=== PATIENT | male | born 1995 | race Caucasian/White ===

== ENCOUNTER 2022-07-28 13:34 | Emergency (ER) | payer BC, SELFPAY ==
[2022-07-28 13:46] VITALS: BP 113/82; PULSE 76; RESP 16; TEMP 37.4; O2SAT 100
--- NOTE | 2022-07-28 13:53 | ED.GENADULT ---
HPI - General Adult General Chief complaint: Ear Stated complaint: ear pain, bleeding and fluid Time Seen by Provider: 07/28/22 13:50 Source: patient and RN notes reviewed Mode of arrival: ambulatory Limitations: no limitations History of Present Illness HPI narrative: 27-year-old male presents with concern for bilateral ear pain left ear bleeding. Reports symptoms started yesterday with nasal congestion and ear pain. He noticed bleeding in the left ear today. Reports has been taking Mucinex D. He denies any fever MD complaint: Ear pain Related Data Home Medications Medication Instructions Recorded Confirmed hydroxyzine HCl 25 mg tablet 25 mg PO DAILY 07/28/22 07/28/22 sertraline 50 mg tablet 50 mg PO DAILY 07/28/22 07/28/22 Allergies Allergy/AdvReac Type Severity Reaction Status Date / Time No Known Allergies Allergy Verified 07/28/22 13:45 Review of Systems Review of Systems: CONSTITUTIONAL: Denies malaise, chills, sweats, or fever. EYES: Denies visual changes, redness, or discharge. ENT: Reports rhinorrhea, congestion. Denies sinus pain, and sore throat. Reports bilateral ear pain, left ear bleeding CARDIOVASCULAR: Denies chest pain, palpitations, or edema. RESPIRATORY: Denies cough. Denies dyspnea. GASTROINTESTINAL: Denies abdominal pain, nausea, vomiting, diarrhea SKIN: Denies rash or itching. MUSCULOSKELETAL: Denies myalgia. NEUROLOGIC: Denies headache. All systems reviewed & are unremarkable except as noted in HPI and below PMFSH Comments At time of signature, agree with nursing past medical, surgical, social and family history. There is no relevant family history pertinent to the presenting complaint Exam Narrative: GENERAL: Well-appearing, well-nourished, and in no acute distress. HEAD: Normocephalic EYES: PERRLA, conjunctivae clear ENT: Nares clear, clear discharge. Mucous membranes moist. Right TM erythematous and bulging, left TM ruptured; left tragal tenderness. Oropharynx not erythematous without lesions. Tonsils not enlarged and without exudate, no drooling, no hoarseness, no trismus, uvula midline. NECK: Supple. No lymphadenopathy CHEST: Clear to auscultation, breath sounds equal. No wheezing, rhonchi, rales, or stridor. No respiratory distress, speaks in full sentences. HEART: Regular rate and rhythm. No murmur heard. SKIN: Warm, dry, no rash. NEURO: Alert and oriented x3. PSYCH: Normal mood and affect Course Course Emergency Course: Patient is aware of diagnosis, understands and agrees to treatment plan. Anticipatory guidance given. Patient agrees to follow-up as directed and is aware of reasons to seek care at the emergency department. Portions of this record may have been created with voice recognition software Level of Care: Express Care Visit Vital Signs Vital signs: Vital Signs Temperature 99.3 F 07/28/22 13:46 Pulse Rate 76 07/28/22 13:46 Respiratory Rate 16 07/28/22 13:46 Blood Pressure 113/82 07/28/22 13:46 Pulse Oximetry 100 07/28/22 13:46 Temperature 99.3 F 07/28/22 13:46 Pulse Rate 76 07/28/22 13:46 Respiratory Rate 16 07/28/22 13:46 Blood Pressure 113/82 07/28/22 13:46 Pulse Oximetry 100 07/28/22 13:46 Reviewed. Medical Decision Making MDM Narrative Medical decision making narrative: Differential diagnosis considered: Dale virus, strep pharyngitis, allergic rhinitis, upper respiratory tract infection, sinusitis, rhinosinusitis, nasopharyngitis. viral pharyngitis, otitis media, otitis externa, otitis effusion, cerumen impaction, foreign body. Exam findings show no acute concerns or changes; patient is non-toxic appearing and is in no distress. Patient is appropriate for outpatient treatment and follow-up. Vital Signs Vital Signs: Vital Signs Temperature 99.3 F 07/28/22 13:46 Pulse Rate 76 07/28/22 13:46 Respiratory Rate 16 07/28/22 13:46 Blood Pressure 113/82 07/28/22 13:46 Pulse Oximetry 100 07/28/22
== END 2022-07-28 13:56 | disposition home or self-care (01) ==
PROVIDERS: Emergency Provider Nurse Practitioner
DX: H66.91 Otitis media, unspecified, right ear (principal)
CPT/HCPCS: 99213; G0463